=== PATIENT | female | born 1965 | race Caucasian/White ===

== ENCOUNTER 2019-05-06 13:51 | Emergency (ER) | payer BC ==
[2019-05-06 14:30] VITALS: BP 115/67
--- NOTE | 2019-05-06 14:41 | UC ---
Truncal Trauma HPI - HPI Summary HPI Summary: RIGHT RIBCAGE PAIN SINCE 1030 TODAY. PT WAS BENDING FORWARD AND PULLING WEEDS WHEN SHE FELT SOMETHING POP IN RIGHT RIBCAGE. NOTHING TAKEN FOR PAIN. PAINFUL TO TAKE DEEP BREATH. - History Of Current Complaint Chief Complaint: UCGeneralIllness Stated Complaint: R RIB INJURY Time Seen by Provider: 05/06/19 14:22 Hx Obtained From: Patient Hx Last Menstrual Period: 01/08/16 ?: No Onset/Duration: Sudden Onset, Lasting Hours Onset Of Pain: Immediate Severity Initially: Moderate Severity Currently: Moderate Pain Intensity: 6 Mechanism Of Injury: Twisted Aggravating Factor(s): Movement, Deep Breathing Alleviating factor(s): Nothing - Allergies/Home Medications Allergies/Adverse Reactions: Allergies Allergy/AdvReac Type Severity Reaction Status Date / Time erythromycin base Allergy Vomiting Verified 05/06/19 14:24 Home Medications: Home Medications Calcium Carb, Citrate/Vit D3 [Calcium + D3 ER Tablet] 1 cap DAILY 05/06/19 [ History Confirmed 05/06/19] PMH/Surg Hx/FS Hx/Imm Hx Previously Healthy: Yes - Surgical History Surgical History: Yes Surgery Procedure, Year, and Place: Tubal Ligation, 2005; Vericose Veins, 2000; Cholecystectomy, 1999; Plantar Fasciitis, 1995 - Family History Known Family History: Negative: Hypertension - Social History Alcohol Use: Occasionally Substance Use Type: None Smoking Status (MU): Former Smoker When Did the Patient Quit Smoking/Using Tobacco: 27 YRS AGO Review of Systems All Other Systems Reviewed And Are Negative: Yes Respiratory: Positive: Other - dyspnea Is Patient Immunocompromised?: No Physical Exam Triage Information Reviewed: Yes Appearance: Well-Appearing, Well-Nourished, Pain Distress Vital Signs: Initial Vital Signs Temp 98.8 F 05/06/19 14:26 Pulse 70 05/06/19 14:26 Resp 16 05/06/19 14:26 BP 115/67 05/06/19 14:26 Pulse Ox 99 05/06/19 14:26 Vital Signs Reviewed: Yes Eye Exam: Normal ENT Exam: Normal Dental Exam: Normal Neck exam: Normal Respiratory Exam: Normal Cardiovascular Exam: Normal Abdominal Exam: Normal Bowel Sounds: Positive: Present Musculoskeletal: Positive: Strength Intact, No Edema, ROM Limited @ - due to pain wiht twisting Neurological Exam: Normal Psychological Exam: Normal Skin Exam: Normal Truncal Trauma Course/Dx - Course Course Of Treatment: hx obtained, exam performed ,meds reviewed, ibuprofen given negative chest xray for fracture. Educated on care of symptoms - Differential Dx/Diagnosis Differential Diagnosis/HQI/PQRI: Rib Fracture, Other - muscle strain Provider Diagnosis: Muscle strain of chest wall Discharge - Sign-Out/Discharge Documenting (check all that apply): Patient Departure All imaging exams completed and their final reports reviewed: No Studies - Discharge Plan Condition: Stable Disposition: HOME Patient Education Materials: Muscle Strain (ED) Referrals: Jing Hunter NP [Primary Care Provider] - Additional Instructions: 1. continue with ibuprofen for the next 2-3 days 2. Warm compresses and gentle stretching throughout the day for the next week, expect more stiffness tomorrow before it starts to improve. 3. Make sure you purposely take some deep breaths throughout the day to help keep lungs clear. - Billing Disposition and Condition Condition: STABLE Disposition: Home
[2019-05-06] MEDS ORDERED: Ibuprofen TAB* 600 MG PO ONE (15:05)
--- NOTE | 2019-05-06 16:06 | UC ---
- Progress Note Progress Note: Patient Name: DESEAN QUIÑONES Medical Record#: [id number] Ordering Physician: Regina Shannon NP Acct.#: [id number] : 1965 Age: 53 Sex: F Location: [facility] [place] Exam Date: 05/06/19 1444 ADM Status: REG ER Order Information: RIBS RIGHT UNILATERAL 2 VWS Accession Number: [id number] CPT: 19137 Indication: RIGHT lower axillary pain following pulling injury. Comparison: January 23, 2016 Technique: PA chest and 3 dedicated RIGHT rib views. Report: No rib fracture or pneumothorax evident. Elevated lung volumes and rarefaction of the mid to upper lung zone interstitial markings. Clear lungs and pleural spaces. The heart, pulmonary vasculature, and mediastinal contours are unremarkable. Unremarkable soft tissue contours. IMPRESSION: #. Negative for RIGHT rib fracture or pneumothorax. #. Stigmata of potential obstructive lung disease. <Electronically signed by Cyrus Edgar MD in OV> 05/06/19 1508 Dictated By: Cyrus Edgar MD Dictated Date/Time: 05/06/19 1508 Transcribed Date/Time: 05/06/19 1505 Copy to: CC:Jing Hunter NP; Regina Shannon NP; Cyrus Delatorre MD Imaging - [facility] Imaging [facility] [place] [address] [address] ph ([phone]) ph ([phone]) ph ([phone]) This report is only to be considered final once signed by the Provider(s) as displayed in the "<Electronically Signed by >" field (s). Absence of a signature indicates the report is in a draft status and still needs to be finalized. In the event this document was created by someone other than the signing Provider, the individual initiating the document will be listed in the "Entered by:" or "Dictated by:" giron. 1 of 1 Course/Dx - Diagnoses Provider Diagnoses: Muscle strain of chest wall Discharge - Sign-Out/Discharge Documenting (check all that apply): Post-Discharge Follow Up All imaging exams completed and their final reports reviewed: Yes - Discharge Plan Condition: Stable Disposition: HOME Patient Education Materials: Muscle Strain (ED) Referrals: Jing Hunter NP [Primary Care Provider] - Additional Instructions: 1. continue with ibuprofen for the next 2-3 days 2. Warm compresses and gentle stretching throughout the day for the next week, expect more stiffness tomorrow before it starts to improve. 3. Make sure you purposely take some deep breaths throughout the day to help keep lungs clear. - Billing Disposition and Condition Condition: STABLE Disposition: Home
== END 2019-05-06 15:30 | disposition home or self-care (01) ==
LOC: UCCORT 13:51
DX: S29.011A Strain of muscle and tendon of front wall of thorax, initial encounter (principal); X50.0XXA Overexertion from strenuous movement or load, initial encounter; Y93.H2 Activity, gardening and landscaping; Y92.9 Unspecified place or not applicable; Z87.891 Personal history of nicotine dependence
CPT/HCPCS: 99211; A9270-GY; G0463